=== PATIENT | male | born 1965 | race Caucasian/White ===

== ENCOUNTER 2023-03-07 15:55 | Inpatient (IN) | payer MEDICAID, OTHER, SELFPAY ==
[2023-03-07 16:04] VITALS: BP 140/70; PULSE 64; O2SAT 100
[2023-03-07 16:11] VITALS: BP 99/62; PULSE 98; RESP 18; O2SAT 96; BMI 19.3
--- NOTE | 2023-03-07 16:32 | ED_ITS ---
HPI - General Adult General Chief complaint: Psychiatric Symptoms Stated complaint: SI W/ PLAN. WHEELCHAIR BOUND Time Seen by Provider: 03/07/23 16:09 Source: patient and EMS Mode of arrival: EMS Limitations: no limitations History of Present Illness HPI narrative: 58-year-old male wheelchair-bound presents the emergency department with anxiety, depression suicidal ideation with plan to overdose and will himself into traffic. Patient currently coming from his [id number]-ofn's house, he reports being in and out of hotels and having relationship issues with his . He tells me is disabled. Denies visual, auditory and tactile hallucinations. Denies drugs alcohol tobacco. No medical complaints at this time. Related Data Home Medications Medication Instructions Recorded Confirmed folic acid 1 mg tablet 1 mg PO DAILY 03/08/23 03/08/23 hydroxyzine HCl 25 mg tablet 25 mg PO BEDTIME PRN anxiety 03/08/23 03/08/23 ipratropium 20 mcg-albuterol 100 1 puff inhalation BID PRN Wheezing 03/08/23 03/08/23 mcg/actuation mist for inhalation (Combivent Respimat) thiamine HCl (vitamin B1) 100 mg 100 mg PO DAILY 03/08/23 03/08/23 tablet tiotropium bromide 1.25 2 puff inhalation DAILY 03/08/23 03/08/23 mcg/actuation mist for inhalation (Spiriva Respimat) Allergies Allergy/AdvReac Type Severity Reaction Status Date / Time Unable to Assess Allergy Unverified 03/07/23 16:21 Review of Systems Review of Systems: Constitutional : No Weight loss, No Fever, No Chills, No Fatigue, No Malaise ENT/Mouth : No sore throat, No Rhinorrhea Eyes: No Eye Pain, No Swelling, No Redness Cardiovascular : No Chest Pain, No SOB, No Dyspnea on Exertion, No Orthopnea, No Edema, No Palpitations Respiratory : No Cough, No Sputum, No Wheezing Gastrointestinal : No Nausea, No Vomiting, No Diarrhea, No Constipation, No abdominal Pain, No Hematochezia, No Melena Genitourinary : No Dysuria, No Urinary Frequency, No Hematuria, Musculoskeletal : No joint pain, No Myalgias, No Joint Swelling Skin : No Skin Lesions, No rash Neuro : No Weakness, No Numbness, No Dizziness, No Headache Psych : + Anxiety/Panic, No Depression, +SI, No HI All other systems reviewed and are negative Yes all other systems are reviewed and are negative [facility] Past Medical History Attestation statement: The following information was validated with the patient. Source: old records reviewed and nursing notes reviewed Social History Social History Alcohol intake: current Alcohol intake frequency: 3 or more drinks per day Use of substances other than those prescribed or required for medical reasons: Yes Substance Use Type: Marijuana Advance Directives: No Advance Directives Information Provided: No Healthcare Proxy: No Guardian: No Physical Exam ED Vital Signs: Vital Signs - 24 hr 03/07/23 16:11 03/07/23 18:50 03/07/23 20:14 Temperature 98.8 F 98.9 F Pulse Rate 98 105 H 94 Respiratory Rate 18 12 12 Blood Pressure 99/62 89/63 L 96/57 L Pulse Oximetry 96 95 93 Oxygen Delivery Method Room Air Room Air 03/07/23 22:04 03/08/23 01:23 03/08/23 03:17 Temperature 99 F 99.7 F Pulse Rate 95 99 104 H Respiratory Rate 12 17 16 Blood Pressure 106/60 128/82 128/73 Pulse Oximetry 95 93 95 Oxygen Delivery Method Room Air Room Air Room Air 03/08/23 06:07 Temperature Pulse Rate Respiratory Rate 18 Blood Pressure Pulse Oximetry Oxygen Delivery Method BMI result Body Mass Index 19.3 vss Appearance: Alert.? Oriented X3.? No acute distress.? Head: Normocephalic, atraumatic, no step-offs or deformities Eyes: Pupils equal, round and reactive to light.? ENT: Pharynx normal.? Neck: Normal inspection.? Neck supple.? CVS: Normal heart rate and rhythm.? Pulses normal.? Respiratory: No respiratory distress.? Breath sounds normal.? Abdomen: Soft and nontender.? Skin: Skin warm and dry.? Normal skin color.? Normal skin turgor.? Extremities: No lower extremity edema.? No calf ttp. Global weakness Neuro: Oriented X 3.? No motor deficit.? No sensory deficit. CN 2-12 intact Course Course Course Narrative: 03/08/2023 1358: Patient awaiting behavioral health placement. No acute complaints. Physician observation continues. Reevaluation(s) Reevaluation #1: CBC with slight leukocytosis 13.6, I do not suspect acute infection. Likely patient's baseline or reactivity. Chemistry low potassium to who 0.9, oral potassium order, 40 meq. UA without infection. Urine toxicology positive for marijuana. Patient's ethanol elevated consistent with acute alcohol intoxication. Salicylates, acetaminophen negative. At this time patient be placed in observation to allow more time to be evaluated by care team. At time observation was started patient common cooperative no acute distress. Time: 17:06 Medications Administered Discontinued Medications Generic Name Dose Route Start Last Admin Trade Name Brandin PRN Reason Stop Dose Admin Acetaminophen 650 mg 03/07/23 16:39 03/07/23 16:53 Acetaminophen 325 Mg Tablet PO 03/07/23 16:40 650 mg ONCE ONE Administration Potassium Chloride 40 meq 03/07/23 17:01 03/07/23 18:53 Potassium Chloride Packet 20 Meq Packet PO 03/07/23 17:02 40 meq ONCE ONE Administration Medical Decision Making Medical Decision Making [facility] Narrative: 1610 58-year-old male presents with anxiety, depression suicidal ideation with plan to wheel himself into traffic on his wheelchair and overdose no medical complaints Physical exam benign. Global weakness noted this is patient's baseline. Likely major depression, anxiety. Unlikely metabolic derangements. Plan medical clearance evaluation by behavioral health team. Differential Diagnosis Differential Diagnoses: The differential diagnosis associated with the pr esentation includes Likely major depression, anxiety. Unlikely metabolic derangements. Admission/Observation Consideration of admission/observation: Escalation of care including admission/observation considered Lab Data [facility] Lab Attestation statement: I reviewed the patient's lab results. 03/07/23 16:24 03/07/23 16:25 Labs: Lab Results 03/07/23 03/07/23 03/07/23 Range/Units 16:24 16:24 16:24 WBC 13.6 H (4.8-10.8) X10*3/uL RBC 5.11 (4.60-5.80) X10*6/uL Hgb 17.3 (14.0-18.0) g/dl Hct 46.7 (42.0-52.0) % MCV 91.4 (80.0-98.0) fL MCH 33.9 H (27.0-33.0) pg MCHC 37.0 H (31.0-36.0) g/dl RDW 11.7 (11.0-16.0) % Plt Count 251 (160-400) X10*3/uL MPV 8.6 L (9.4-12.4) fL Immature Gran % (Auto) 0.4 (0.0-0.4) % Neut % (Auto) 63.9 (45-73) % Lymph % (Auto) 27.7 (20-40) % [place] % (Auto) 7.5 (2-11) % Eos % (Auto) 0.1 (0-4) % Baso % (Auto) 0.4 (0-2) % Lymph # (Auto) 3.8 (1.2-4.9) X10*3/uL [place] # (Auto) 1.0 (0.1-1.2) X10*3/uL Eos # (Auto) 0.0 (0.0-0.4) X10*3/uL Baso # (Auto) 0.1 (0.0-0.2) X10*3/uL Abs Immat Gran (auto) 0.05 H (0.00-0.03) X10*3/uL Absolute Neuts (auto) 8.7 H (2.0-8.3) x10*3/uL Absolute Nucleated RBC 0.000 (0.0-0.012) X10*3/uL Nucleated RBC % (auto) 0.0 (0.0-0.2) /100WBC Sodium (135-145) mmol/L Potassium (3.3-5.1) mmol/L Chloride (96-108) mmol/L Carbon Dioxide (22-29) mmol/L Anion Gap (12-20) BUN (9-16) mg/dL Creatinine (0.5-1.4) mg/dL Estim Creat Clear Calc Estimated GFR Random Glucose (60-115) mg/dL Calcium (8.4-10.2) mg/dL Total Bilirubin (0.0-1.0) mg/dL AST (5-37) U/L ALT (0-40) U/L Alkaline Phosphatase (39-117) U/L Total Creatine Kinase (38-174) U/L Total Protein (6.5-8.0) g/dL Albumin (3.5-5.0) g/dL Urine Color Dark Yellow Urine Appearance Clear Urine pH 6.0 (5.0-9.0) Ur Specific [place] 1.025 (1.005-1.025) Urine Protein 300 (3+) H (Neg-Trace) mg/dL Urine Glucose (UA) Negative (Negative) mg/dL Urine Ketones Negative (Negative) mg/dL Urine Blood Negative (Negative) Urine Nitrite Negative (Negative) Ur Leukocyte Esterase Trace H (Negative) Urine RBC 0-2 (0-2) /HPF Urine WBC 0-5 (0-5) /HPF Ur Squamous Epith Cells 0-2 (0-2) /HPF Urine Bacteria None Seen (None Seen) Hyaline Casts 11-20 (0-2) /LPF Salicylates < 5.0 L (15-30) mg/dL Urine Opiates Screen (Not Detect) Urine Fentanyl Screen (Not Detect) Acetaminophen < 17 (<30) mcg/mL Ur Barbiturates Screen (Not Detect) Ur Phencyclidine Scrn (Not Detect) Ur Amphetamines Screen (Not Detect) U Benzodiazepines Scrn (Not Detect) Urine Cocaine Screen (Not Detect) U Marijuana (THC) Screen (Not Detect) Ethyl Alcohol mg/dL COVID-19 (URI) (Negative) COVID-19 Clin Com 03/07/23 03/07/23 03/08/23 Range/Units 16:24 16:25 09:49 WBC (4.8-10.8) X10*3/uL RBC (4.60-5.80) X10*6/uL Hgb (14.0-18.0) g/dl Hct (42.0-52.0) % MCV (80.0-98.0) fL MCH (27.0-33.0) pg MCHC (31.0-36.0) g/dl RDW (11.0-16.0) % Plt Count (160-400) X10*3/uL MPV (9.4-12.4) fL Immature Gran % (Auto) (0.0-0.4) % Neut % (Auto) (45-73) % Lymph % (Auto) (20-40) % [place] % (Auto) (2-11) % Eos % (Auto) (0-4) % Baso % (Auto) (0-2) % Lymph # (Auto) (1.2-4.9) X10*3/uL [place] # (Auto) (0.1-1.2) X10*3/uL Eos # (Auto) (0.0-0.4) X10*3/uL Baso # (Auto) (0.0-0.2) X10*3/uL Abs Immat Gran (auto) (0.00-0.03) X10*3/uL Absolute Neuts (auto) (2.0-8.3) x10*3/uL Absolute Nucleated RBC (0.0-0.012) X10*3/uL Nucleated RBC % (auto) (0.0-0.2) /100WBC Sodium 139 (135-145) mmol/L Potassium 2.9 L (3.3-5.1) mmol/L Chloride 93 L (96-108) mmol/L Carbon Dioxide 30 H (22-29) mmol/L Anion Gap 19 (12-20) BUN 8 L (9-16) mg/dL Creatinine 0.81 (0.5-1.4) mg/dL Estim Creat Clear Calc 97.0 Estimated GFR > 60 Random Glucose 107 (60-115) mg/dL Calcium 9.4 (8.4-10.2) mg/dL Total Bilirubin 0.5 (0.0-1.0) mg/dL AST 22 (5-37) U/L ALT 16 (0-40) U/L Alkaline Phosphatase 183 H (39-117) U/L Total Creatine Kinase 110 (38-174) U/L Total Protein 7.9 (6.5-8.0) g/dL Albumin 4.2 (3.5-5.0) g/dL Urine Color Urine Appearance Urine pH (5.0-9.0) Ur Specific [place] (1.005-1.025) Urine Protein (Neg-Trace) mg/dL Urine Glucose (UA) (Negative) mg/dL Urine Ketones (Negative) mg/dL Urine Blood (Negative) Urine Nitrite (Negative) Ur Leukocyte Esterase (Negative) Urine RBC (0-2) /HPF Urine WBC (0-5) /HPF Ur Squamous Epith Cells (0-2) /HPF Urine Bacteria (None Seen) Hyaline Casts (0-2) /LPF Salicylates (15-30) mg/dL Urine Opiates Screen Not Detected (Not Detect) Urine Fentanyl Screen Not Detected (Not Detect) Acetaminophen (<30) mcg/mL Ur Barbiturates Screen Not Detected (Not Detect) Ur Phencyclidine Scrn Not Detected (Not Detect) Ur Amphetamines Screen Not Detected (Not Detect) U Benzodiazepines Scrn Not Detected (Not Detect) Urine Cocaine Screen Not Detected (Not Detect) U Marijuana (THC) Screen POSITIVE H (Not Detect) Ethyl Alcohol 236 mg/dL COVID-19 (URI) Negative (Negative) COVID-19 Clin Com See Note 03/08/23 Range/Units 12:15 WBC (4.8-10.8) X10*3/uL RBC (4.60-5.80) X10*6/uL Hgb (14.0-18.0) g/dl Hct (42.0-52.0) % MCV (80.0-98.0) fL MCH (27.0-33.0) pg MCHC (31.0-36.0) g/dl RDW (11.0-16.0) % Plt Count (160-400) X10*3/uL MPV (9.4-12.4) fL Immature Gran % (Auto) (0.0-0.4) % Neut % (Auto) (45-73) % Lymph % (Auto) (20-40) % [place] % (Auto) (2-11) % Eos % (Auto) (0-4) % Baso % (Auto) (0-2) % Lymph # (Auto) (1.2-4.9) X10*3/uL [place] # (Auto) (0.1-1.2) X10*3/uL Eos # (Auto) (0.0-0.4) X10*3/uL Baso # (Auto) (0.0-0.2) X10*3/uL Abs Immat Gran (auto) (0.00-0.03) X10*3/uL Absolute Neuts (auto) (2.0-8.3) x10*3/uL Absolute Nucleated RBC (0.0-0.012) X10*3/uL Nucleated RBC % (auto) (0.0-0.2) /100WBC Sodium 137 (135-145) mmol/L Potassium 3.3 (3.3-5.1) mmol/L Chloride 93 L (96-108) mmol/L Carbon Dioxide 35 H (22-29) mmol/L Anion Gap 12 (12-20) BUN 9 (9-16) mg/dL Creatinine 0.79 (0.5-1.4) mg/dL Estim Creat Clear Calc 99.5 Estimated GFR > 60 Random Glucose 110 (60-115) mg/dL Calcium 9.5 (8.4-10.2) mg/dL Total Bilirubin (0.0-1.0) mg/dL AST (5-37) U/L ALT (0-40) U/L Alkaline Phosphatase (39-117) U/L Total Creatine Kinase (38-174) U/L Total Protein (6.5-8.0) g/dL Albumin (3.5-5.0) g/dL Urine Color Urine Appearance Urine pH (5.0-9.0) Ur Specific [place] (1.005-1.025) Urine Protein (Neg-Trace) mg/dL Urine Glucose (UA) (Negative) mg/dL Urine Ketones (Negative) mg/dL Urine Blood (Negative) Urine Nitrite (Negative) Ur Leukocyte Esterase (Negative) Urine RBC (0-2) /HPF Urine WBC (0-5) /HPF Ur Squamous Epith Cells (0-2) /HPF Urine Bacteria (None Seen) Hyaline Casts (0-2) /LPF Salicylates (15-30) mg/dL Urine Opiates Screen (Not Detect) Urine Fentanyl Screen (Not Detect) Acetaminophen (<30) mcg/mL Ur Barbiturates Screen (Not Detect) Ur Phencyclidine Scrn (Not Detect) Ur Amphetamines Screen (Not Detect) U Benzodiazepines Scrn (Not Detect) Urine Cocaine Screen (Not Detect) U Marijuana (THC) Screen (Not Detect) Ethyl Alcohol mg/dL COVID-19 (URI) (Negative) COVID-19 Clin Com Core Measures AMI core measures followed: Yes Measure exclusions: not indicated Critical Care Time Critical Care Time Critical Care Time: No Discharge Plan Discharge Clinical Impression: Depression, Suicidal ideation, Acute alcohol intoxication Patient Disposition: Still a Patient Prescriptions: No Action thiamine HCl (vitamin B1) 100 mg tablet 100 mg PO DAILY folic acid 1 mg tablet 1 mg PO DAILY hydroxyzine HCl 25 mg tablet 25 mg PO BEDTIME PRN (Reason: anxiety) Combivent Respimat 20-100 mcg/actuation mist 1 puff inhalation BID PRN (Reason: Wheezing) Spiriva Respimat 1.25 mcg/actuation mist 2 puff INHALATION DAILY Interventions: [place]-Suicide Risk Severity Scale Last Done: 03/08/23 02:43
[2023-03-07 16:40] LABS: MANUAL DIFF FLAG NO
[2023-03-07 16:42] LABS: Basophils Absolute Auto 0.1 X10*3/uL (0.0-0.2); Basophils Percent Auto 0.4 % (0-2); Eosinophils Percent Auto 0.1 % (0-4); Hematocrit 46.7 % (42.0-52.0); Hemoglobin 17.3 g/dl (14.0-18.0); Imm Gran Abs Auto 0.05 X10*3/uL (0.00-0.03); Imm Gran Pct Auto 0.4 % (0.0-0.4); Lymphocytes Absolute Auto 3.8 X10*3/uL (1.2-4.9); Lymphocytes Percent Auto 27.7 % (20-40); Mean Corpuscular Hemoglobin 33.9 pg (27.0-33.0); Mean Corpuscular Volume 91.4 fL (80.0-98.0); Mean Platelet Volume 8.6 fL (9.4-12.4); Monocytes Percent Auto 7.5 % (2-11); Neutrophils Absolute Auto 8.7 x10*3/uL (2.0-8.3); Neutrophils Percent Auto 63.9 % (45-73); Platelet Count 251 X10*3/uL (160-400); Red Blood Count 5.11 X10*6/uL (4.60-5.80); Red Cell Distribution Width 11.7 % (11.0-16.0); White Blood Count 13.6 X10*3/uL (4.8-10.8)
[2023-03-07 16:43] LABS: Appearance Urine Clear; Color Urine Dark Yellow; Glucose Urine UA Negative (Negative); Leukocyte Esterase Urine Trace (Negative); Nitrite Urine Negative (Negative); Specific Gravity - Urine 1.025 (1.005-1.025); UMIC TRIGGER UACC YES; Urine Blood Negative (Negative); Urine Ketones Negative (Negative); Urine Protein 300 (3+) mg/dL (Neg-Trace)
[2023-03-07 16:52] LABS: Amphetamine Screen Urine Not Detected (Not Detect); Barbiturates, Urine Not Detected (Not Detect); Benzodiazepines Screen Urine Not Detected (Not Detect); Cannabinoid Screen Urine POSITIVE (Not Detect); Cocaine Screen Urine Not Detected (Not Detect); Fentanyl, urine Not Detected (Not Detect); Opiate Screen Urine Not Detected (Not Detect); Phencyclidine Screen Urine Not Detected (Not Detect)
[2023-03-07] MEDS: Acetaminophen 325 MG TABLET 650 MG PO (16:53)
[2023-03-07 16:54] LABS: Bacteria Urine None Seen (None Seen); RBC Urine 0-2 /HPF (0-2); Squamous Epithelial Cell Urine 0-2 /HPF (0-2); WBC Urine 0-5 /HPF (0-5)
[2023-03-07 16:57] LABS: Alanine Aminotransferase 16 U/L (0-40); Albumin Level 4.2 g/dL (3.5-5.0); Alkaline Phosphatase 183 U/L (39-117); Anion Gap 19 (12-20); Aspartate Amino Transferase 22 U/L (5-37); Bilirubin Total 0.5 mg/dL (0.0-1.0); Blood Urea Nitrogen 8 mg/dL (9-16); Calcium 9.4 mg/dL (8.4-10.2); Carbon Dioxide 30 mmol/L (22-29); Chloride 93 mmol/L (96-108); Estimated Glomerular Filt Rate > 60; Ethanol 236 mg/dL; Glucose Random 107 mg/dL (60-115); Potassium 2.9 mmol/L (3.3-5.1); Sodium 139 mmol/L (135-145); Total Protein 7.9 g/dL (6.5-8.0)
[2023-03-07 17:04] LABS: Acetaminophen LAB < 17 mcg/mL (<30); Salicylate < 5.0 mg/dL (15-30)
[2023-03-07 18:50] VITALS: BP 89/63; PULSE 105; RESP 12; TEMP 37.1; O2SAT 95
[2023-03-07] MEDS: Potassium Chloride Packet 20 MEQ PACKET 40 MEQ PO (18:53)
[2023-03-07 20:14] VITALS: BP 96/57; PULSE 94; RESP 12; TEMP 37.2; O2SAT 93
--- NOTE | 2023-03-07 20:17 | PC.NURSE ---
assumed care of pt at 1900 - pt resting comfortably on stretcher, respirations even and unlabored, 1:[address] call irene within reach will CTM
[2023-03-07 22:04] VITALS: BP 106/60; PULSE 95; RESP 12; TEMP 37.2; O2SAT 95
[2023-03-08 01:23] VITALS: BP 128/82; PULSE 99; RESP 17; O2SAT 93
[2023-03-08 03:17] VITALS: BP 128/73; PULSE 104; RESP 16; TEMP 37.6; O2SAT 95
[2023-03-08 06:00] VITALS: PULSE 95; RESP 18; TEMP 36.6; O2SAT 98
[2023-03-08 06:07] VITALS: RESP 18
--- NOTE | 2023-03-08 08:03 | PHA.MEDREC ---
Pharmacy Consult ? Medication Reconciliation Pharmacy has completed the medication reconciliation. Spoke to patient to confirm meds. Patient states they take all meds, however haven't filled inhalers since 07/06/22 and other meds since 10/15/22. Patient also states not taking their medication for at least 2 weeks.
--- NOTE | 2023-03-08 08:25 | PC.NURSE ---
pt reports depression but denies si at this time, pleasant, states he did not sleep well last night, drinking milk and plans to try to get some rest, sitter at bedside
--- NOTE | 2023-03-08 09:29 | ECG_ITS ---
Test Reason : check cardiac status for admission Blood Pressure : / mmHG Vent. Rate : 091 BPM Atrial Rate : 091 BPM P-R Int : 110 ms QRS Dur : 076 ms QT Int : 470 ms P-R-T Axes : 076 077 082 degrees QTc Int : 578 ms Sinus rhythm with short AR Right atrial enlargement ST depressions- consider ischemia Prolonged QTc Abnormal ECG No previous ECGs available Referred By: Andree Weiss Electronically Signed By:Satya Powell
[2023-03-08 10:08] LABS: COVID-19 Test Negative (Negative); IDNOW Serial# BCCEAD1C
[2023-03-08 12:34] LABS: Blood Urea Nitrogen 9 mg/dL (9-16); Calcium 9.5 mg/dL (8.4-10.2); Creatinine Clr Calc Pharmacy 99.5; Estimated Glomerular Filt Rate > 60; Glucose Random 110 mg/dL (60-115)
[2023-03-08 12:44] LABS: Anion Gap 12 (12-20); Carbon Dioxide 35 mmol/L (22-29); Chloride 93 mmol/L (96-108); Potassium 3.3 mmol/L (3.3-5.1); Sodium 137 mmol/L (135-145)
--- NOTE | 2023-03-08 15:45 | PC.NURSE ---
pt is asleep with spontaneous resps @ 16. pt esaily arousable pt calm and cooperative when awake, caox4 and interacting appropriately with staff. plan is for possible admission to .
[2023-03-08 15:47] VITALS: BP 91/62; PULSE 95; RESP 16; O2SAT 98
--- NOTE | 2023-03-08 18:03 | PC.NURSE ---
report has been given to m3, pt has been reevaluated by care team to determine if pt need abigail psych vs adult psych. plan is still for adult psych on m3
[2023-03-08 19:00] VITALS: BP 118/79; PULSE 98; RESP 18; TEMP 36.2; O2SAT 97
--- NOTE | 2023-03-08 19:01 | PC.NURSE ---
Patient brought to the floor from the ED for admission, patient skin check completed with this RN and NAINA Larkin no wounds or open areas identified on skin check. Patient reports 6/10 depression 0/10 anxiety denies current HI/SI. Patient changed in to hospital attire, VSS, height and weight taken. Patient is able to stand and pivot between wheelchair and bed with standby assist. Patient denies current physical complaints, respirations even and unlabored, pt caox4, pt verbalizes understanding of unit rules and human rights, Patient has 1:1 patient observer at the bedside.
[2023-03-08] MEDS: Gabapentin 300 MG CAPSULE PO (21:17)
[2023-03-08] MEDS: traZODone HCL 50 MG TABLET PO (21:18)
[2023-03-08] MEDS: Acetaminophen 325 MG TABLET 650 MG PO (21:18)
[2023-03-08] MEDS: LORazepam 1 MG TABLET PO (21:20)
[2023-03-08] MEDS: Albuterol Sulfate 90 MCG 8 GM INHALER 2 PUFF INHALE (22:07)
--- NOTE | 2023-03-09 05:56 | PC.ADMIT ---
Pt is a 58 yo male admitted to unit after referral from CARE team via ED. Arrived on unit at 1820. Legal status: CV. Pt's medical issues are leg and back injury which leaves him confined to a wheelchair. Hx of GERD, COPD and hypotension. Pt uses THC frequently and ETOH daily to excess. Precipitant to admission was that pt was homeless and his was staying at her father's house and pt is not allowed to stay there. Pt had been staying in [facility] for 30 days. Upon discharge pt had been staying at hotels but ran out of money. Pt then started self medicating his anxiety and depression with alcohol. According to pt's , pt has been suicidal for past 10 days. Pt had a plan to overdose and wheel his wheelchair into traffic to end his life. Pt also had a suicide attempt last year by starving himself for which he was hospitalized. Pt presents in hospital johnnies, disheveled, calm, tired, pleasant but wanting to sleep. Provider container crane operator notified of admission and orders obtained. Pt placed on 1:1 due to safety issue of wheelchair. Pt reports feeling safe in hospital.
[2023-03-09] MEDS: Folic Acid 1 MG TABLET PO (09:04)
[2023-03-09] MEDS: Gabapentin 300 MG CAPSULE PO ×3 (09:04→21:06)
[2023-03-09] MEDS: Thiamine HCL 100 MG TABLET PO (09:04)
[2023-03-09] MEDS: Albuterol Sulfate 90 MCG 8 GM INHALER 2 PUFF INHALE ×2 (09:08→21:09)
[2023-03-09] MEDS: Acetaminophen 325 MG TABLET 650 MG PO ×3 (09:08→21:03)
[2023-03-09 09:19] LABS: Estimated Average Glucose 105 mg/dL; Hemoglobin A1C 152.2017 umol/L; Hemoglobin A1c % 5.3 %
[2023-03-09 10:02] LABS: Cholesterol 201 mg/dL; HDL Cholesterol 50 mg/dL; LDL Cholesterol Calculated 114 mg/dl; Triglycerides 188 mg/dL
--- NOTE | 2023-03-09 10:26 | PC.NURSE ---
Pt is a smoker, refuses nicotine replacement therapy
[2023-03-09] MEDS: Sertraline HCL 50 MG TABLET PO (14:48)
--- NOTE | 2023-03-09 14:48 | HO.PSYADMNOT ---
HPI Date of Service: 03/09/23 Chief Complaint: depression/ si HPI Narrative: per CARE team evaluation, pt was BIBA with c/o depression with SI with plan to overdose and wheel his wheelchair into traffic. notably, at presentation to the ED, pt was intoxicated with breathalyzer at .236. he informed CARE team staff he had recently gotten out of [facility] after a 30 day stay and gone to stay with his and [id number] at his [id number]'s home, with the understanding he needed to remain sober in order to stay there. he failed to remain sober and was forced to leave. he then stayed at [facility] until his money ran out. then he became suicidal and sought admission. per collateral from kacie, pt has been expressing SI for the past 10 days. she added he was also suicidal last year and stopped eating but continuned drinking, resulting ultimately in a medical admission for failure to thrive and a referral to an alcohol rehab at discharge. pt reports he has been depressed for a couple of years. he states that he was OK until 2-3 years ago when he lost his house and became homeless. since that time he has been in and out of physical rehabilitation facilities and living in motels. he states he has had 4 and a half months of sobriety before, and feels confident he can quit drinking now, believing he is quite motivated. he reports consistently depressed mood and endorses sleep disturbance, ruminative guilt, anergia, low concentration, and recent SI. he is ambivlanet regarding motivation/enjoyment and PMA/PMR. he reports his appetite is good. today he feels he is in alcohol withdrawal and endorses sweats and diarrhea. he denies ALEXANDER, tremor, or nausea. he is interested in treatment for depression. R/B of SSRIs and wellbutrin are discussed, SSRI decided upon for safety. agrees to start zoloft 50 mg daily. pt also agrees to restart remeron, which he was prescribed recently at [facility]. Past Psychiatric History: hosps: none prior SA: denies SIB: denies outpt Tx Hx: denies Medical Evaluation Reviewed: Yes PMFSH Narrative: anemia COPD h/o EtOH w/drawal Sz severe protein-calorie malnutrition gait apraxia avascular necrosis B/L femoral heads functional urinary incontinence functional fecal incontinence GERD stage II pressure ulcer left hip Family History: mother - alcohol Social History: had been living in a rented house with his and 2 others. they left and he and his could no longer afford the rent. he was in and out of STRs and she went to live with her father. he has SSDI income of $900/month. has a history of working numerous jobs, such as factory work and electrical. guesses the last time he ws working was about 10 years ago. he states that for the past 3-4 years he has been disabled and in a wheelchair. Substance History: tobacco: 1 ppd cannabis: seldom: utox POS alcohol: daily denies use of other drugs or substances of abuse. denies any h/o detox or rehab. has some Hx in an AA-like group. Trauma History: denies Diagnostics Vital Signs (24Hr): Vital Signs - 24 hr 03/08/23 15:47 03/08/23 19:00 Temperature 97.2 F Pulse Rate 95 98 Respiratory Rate 16 18 Blood Pressure 91/62 118/79 Pulse Oximetry 98 97 Oxygen Delivery Method Room Air Room Air BMI result Body Mass Index 19.3 Labs 03/07/23 16:24 03/08/23 12:15 Labs: Laboratory Results - last 48 hr 03/07/23 03/07/23 03/07/23 16:24 16:24 16:24 WBC 13.6 H RBC 5.11 Hgb 17.3 Hct 46.7 MCV 91.4 MCH 33.9 H MCHC 37.0 H RDW 11.7 Plt Count 251 MPV 8.6 L Immature Gran % (Auto) 0.4 Neut % (Auto) 63.9 Lymph % (Auto) 27.7 Ellis % (Auto) 7.5 Eos % (Auto) 0.1 Baso % (Auto) 0.4 Lymph # (Auto) 3.8 Ellis # (Auto) 1.0 Eos # (Auto) 0.0 Baso # (Auto) 0.1 Abs Immat Gran (auto) 0.05 H Absolute Neuts (auto) 8.7 H Absolute Nucleated RBC 0.000 Nucleated RBC % (auto) 0.0 Sodium Potassium Chloride Carbon Dioxide Anion Gap BUN Creatinine Estim Creat Clear Calc Estimated GFR Random Glucose Estimat Average Glucose Hemoglobin A1c % Calcium Total Bilirubin AST ALT Alkaline Phosphatase Total Creatine Kinase Total Protein Albumin Triglycerides Cholesterol LDL Cholesterol, Calc HDL Cholesterol Urine Color Dark Yellow Urine Appearance Clear Urine pH 6.0 Ur Specific [place] 1.025 Urine Protein 300 (3+) H Urine Glucose (UA) Negative Urine Ketones Negative Urine Blood Negative Urine Nitrite Negative Ur Leukocyte Esterase Trace H Urine RBC 0-2 Urine WBC 0-5 Ur Squamous Epith Cells 0-2 Urine Bacteria None Seen Hyaline Casts 11-20 Salicylates < 5.0 L Urine Opiates Screen Urine Fentanyl Screen Acetaminophen < 17 Ur Barbiturates Screen Ur Phencyclidine Scrn Ur Amphetamines Screen U Benzodiazepines Scrn Urine Cocaine Screen U Marijuana (THC) Screen Ethyl Alcohol COVID-19 (URI) COVID-19 Ph.Creative Com 03/07/23 03/07/23 03/08/23 16:24 16:25 09:49 WBC RBC Hgb Hct MCV MCH MCHC RDW Plt Count MPV Immature Gran % (Auto) Neut % (Auto) Lymph % (Auto) Ellis % (Auto) Eos % (Auto) Baso % (Auto) Lymph # (Auto) Ellis # (Auto) Eos # (Auto) Baso # (Auto) Abs Immat Gran (auto) Absolute Neuts (auto) Absolute Nucleated RBC Nucleated RBC % (auto) Sodium 139 Potassium 2.9 L Chloride 93 L Carbon Dioxide 30 H Anion Gap 19 BUN 8 L Creatinine 0.81 Estim Creat Clear Calc 97.0 Estimated GFR > 60 Random Glucose 107 Estimat Average Glucose Hemoglobin A1c % Calcium 9.4 Total Bilirubin 0.5 AST 22 ALT 16 Alkaline Phosphatase 183 H Total Creatine Kinase 110 Total Protein 7.9 Albumin 4.2 Triglycerides Cholesterol LDL Cholesterol, Calc HDL Cholesterol Urine Color Urine Appearance Urine pH Ur Specific [place] Urine Protein Urine Glucose (UA) Urine Ketones Urine Blood Urine Nitrite Ur Leukocyte Esterase Urine RBC Urine WBC Ur Squamous Epith Cells Urine Bacteria Hyaline Casts Salicylates Urine Opiates Screen Not Detected Urine Fentanyl Screen Not Detected Acetaminophen Ur Barbiturates Screen Not Detected Ur Phencyclidine Scrn Not Detected Ur Amphetamines Screen Not Detected U Benzodiazepines Scrn Not Detected Urine Cocaine Screen Not Detected U Marijuana (THC) Screen POSITIVE H Ethyl Alcohol 236 COVID-19 (URI) Negative COVID-19 Ph.Creative Com See Note 03/08/23 03/09/23 03/09/23 12:15 08:57 08:58 WBC RBC Hgb Hct MCV MCH MCHC RDW Plt Count MPV Immature Gran % (Auto) Neut % (Auto) Lymph % (Auto) Ellis % (Auto) Eos % (Auto) Baso % (Auto) Lymph # (Auto) Ellis # (Auto) Eos # (Auto) Baso # (Auto) Abs Immat Gran (auto) Absolute Neuts (auto) Absolute Nucleated RBC Nucleated RBC % (auto) Sodium 137 Potassium 3.3 Chloride 93 L Carbon Dioxide 35 H Anion Gap 12 BUN 9 Creatinine 0.79 Estim Creat Clear Calc 99.5 Estimated GFR > 60 Random Glucose 110 Estimat Average Glucose 105 Hemoglobin A1c % 5.3 Calcium 9.5 Total Bilirubin AST ALT Alkaline Phosphatase Total Creatine Kinase Total Protein Albumin Triglycerides 188 Cholesterol 201 LDL Cholesterol, Calc 114 HDL Cholesterol 50 Urine Color Urine Appearance Urine pH Ur Specific [place] Urine Protein Urine Glucose (UA) Urine Ketones Urine Blood Urine Nitrite Ur Leukocyte Esterase Urine RBC Urine WBC Ur Squamous Epith Cells Urine Bacteria Hyaline Casts Salicylates Urine Opiates Screen Urine Fentanyl Screen Acetaminophen Ur Barbiturates Screen Ur Phencyclidine Scrn Ur Amphetamines Screen U Benzodiazepines Scrn Urine Cocaine Screen U Marijuana (THC) Screen Ethyl Alcohol COVID-19 (URI) COVID-19 Clin Com Meds/Allergies Meds Home Medications Medication Instructions Recorded Confirmed Type folic acid 1 mg tablet 1 mg PO DAILY 03/08/23 03/08/23 History hydroxyzine HCl 25 mg tablet 25 mg PO BEDTIME PRN anxiety 03/08/23 03/08/23 History ipratropium 20 mcg-albuterol 100 1 puff inhalation BID PRN Wheezing 03/08/23 03/08/23 History mcg/actuation mist for inhalation (Combivent Respimat) thiamine HCl (vitamin B1) 100 mg 100 mg PO DAILY 03/08/23 03/08/23 History tablet tiotropium bromide 1.25 2 puff inhalation DAILY 03/08/23 03/08/23 History mcg/actuation mist for inhalation (Spiriva Respimat) Allergies Allergies Allergy/AdvReac Type Severity Reaction Status Date / Time No Known Allergies Allergy Verified 03/08/23 19:11 Mental Status Exam Mental Status Exam Narrative: calm, cooperative. no PMA/PMR. disheveled, poorly groomed. speech somewhat dysarthric, soft. nml amount and rate and prosody. thoughts digressive, can be linear in response to questions. generally logical. affect constricted, normo-intense, non-labile. mood half n half. no SI, MRE day of presentation to ED. denies AVH, TH. Assessment & Plan Assessment & Plan (1) Nicotine use disorder: Status: Acute Code(s): F17.200 - Nicotine dependence, unspecified, uncomplicated (2) Alcohol use disorder: Status: Acute Code(s): F10.90 - Alcohol use, unspecified, uncomplicated (3) Depressive disorder: Status: Acute Code(s): F32.A - Depression, unspecified Plan ativan per [facility] protocol for alcohol withdrawal. lacie lozenge for nicotine dependence. remeron for sleep. zoloft for depression. referral to rehab. Patient educated on: diagnosis, medication risk/benefits and substance abuse Reason for continued inpatient stay Substantial Risk for: harm to self, inability to function and rapid decompensation Statement Statement: I have reviewed the history and physical and performed a pertinent examination on my patient. No changes have occurred unless specified. If the History and Physical was not performed prior to admission, the Hospitalist's service will be consulted for completing the admission physical. Time Spent With Patient Time: Total time managing care of this patient today __55__ minutes.
[2023-03-09] MEDS: Magnesium Hydrox/Alum Hydrox 30 ML ORAL.SUSP PO (18:50)
[2023-03-09 20:16] VITALS: BP 129/87; PULSE 98; RESP 18; TEMP 36.6; O2SAT 97
[2023-03-09] MEDS: Mirtazapine 15 MG TABLET PO (21:05)
[2023-03-09] MEDS: hydrOXYzine HCL 25 MG TABLET PO (21:06)
--- NOTE | 2023-03-10 03:42 | PC.NURSE ---
Provider public relations supervisor contacted to clarify bedtime mirtazepine orders. Provider advised no changes to orders at this time, administer 15 mg mirtazepine, and if needed pt may receive 7.5 mg as prn. Orders to be reviewed again with provider in the morning.
[2023-03-10 08:46] VITALS: BP 115/68; PULSE 88; RESP 16; TEMP 36.6; O2SAT 97
[2023-03-10] MEDS: Thiamine HCL 100 MG TABLET PO (08:48)
[2023-03-10] MEDS: Gabapentin 300 MG CAPSULE PO ×3 (08:48→21:33)
[2023-03-10] MEDS: Sertraline HCL 50 MG TABLET PO (08:48)
[2023-03-10] MEDS: Folic Acid 1 MG TABLET PO (08:48)
[2023-03-10] MEDS: Acetaminophen 325 MG TABLET 650 MG PO ×2 (09:30→21:34)
--- NOTE | 2023-03-10 13:45 | P.PNPSI_ITS ---
Subjective Subjective Date of Service: 03/10/23 Reason For Visit: depression/ si Interim History: Patient seen and discussed with team. Patient reports he is feeling better overall as he is sleeping better with his current medications.Tolerating Remeron and Zoloft well. He is having some nausea but able to eat and drink. Continues on 1:1 for fall risk. He denies SI or AVH. No withdrawals noted. CIWA negative. Review of Systems Review of Systems Constitutional : No Weight loss, No Fever, No Chills, No Fatigue, No Malaise ENT/Mouth : No sore throat, No Rhinorrhea Eyes: No Eye Pain, No Swelling, No Redness Cardiovascular : No Chest Pain, No SOB, No Dyspnea on Exertion, No Orthopnea, No Edema, No Palpitations Respiratory : No Cough, No Sputum, No Wheezing Gastrointestinal : No Nausea, No Vomiting, No Diarrhea, No Constipation, No abdominal Pain, No Hematochezia, No Melena Genitourinary : No Dysuria, No Urinary Frequency, No Hematuria, Musculoskeletal : No joint pain, No Myalgias, No Joint Swelling Skin : No Skin Lesions, No rash Neuro : No Weakness, No Numbness, No Dizziness, No Headache Psych : + Anxiety/Panic, No Depression, +SI, No HI All other systems reviewed and are negative Yes all other systems are reviewed and are negative Mental Status Exam Mental Status Exam Narrative: calm, cooperative. no PMA/PMR. disheveled, poorly groomed. speech somewhat dysarthric, soft. nml amount and rate and prosody. thoughts digressive, can be linear in response to questions. generally logical. affect constricted, normo- intense, non-labile. mood half n half. no SI, MRE day of presentation to ED. denies AVH, TH. Diagnostics Vital Signs (24Hr): Vital Signs - 24 hr 03/09/23 20:16 03/10/23 08:46 Temperature 97.8 F 97.9 F Pulse Rate 98 88 Respiratory Rate 18 16 Blood Pressure 129/87 115/68 Pulse Oximetry 97 97 Oxygen Delivery Method Room Air Room Air BMI result Body Mass Index 19.3 Labs 03/07/23 16:24 03/08/23 12:15 Labs: Laboratory Results - last 48 hr 03/09/23 03/09/23 08:57 08:58 Estimat Average Glucose 105 Hemoglobin A1c % 5.3 Triglycerides 188 Cholesterol 201 LDL Cholesterol, Calc 114 HDL Cholesterol 50 Medications Medications Current Medications Acetaminophen (Acetaminophen 325 Mg Tablet) 650 mg PO Q6H PRN PRN Reason: Headache/Pain Mild Scale (1-3) Last Admin: 03/10/23 09:30 Dose: 650 mg Al Hydroxide/Mg Hydroxide (Magnesium Hydrox/Alum Hydrox 30 Ml Oral.Susp) 30 ml PO Q6H PRN PRN Reason: Heartburn/Nausea Last Admin: 03/09/23 18:50 Dose: 30 ml Albuterol Sulfate (Albuterol Sulfate 90 Mcg 8 Gm Inhaler) 2 puff INHALE RQ4H PRN PRN Reason: Shortness of Breath Last Admin: 03/09/23 21:09 Dose: 2 puff Albuterol/Ipratropium (Albuterol/Iprat 2.5/0.5mg 3 Ml Ampul.Neb) 3 ml INHALE BID PRN PRN Reason: Wheezing Folic Acid (Folic Acid 1 Mg Tablet) 1 mg PO DAILY [facility] Last Admin: 03/10/23 08:48 Dose: 1 mg Gabapentin (Gabapentin 300 Mg Capsule) 300 mg PO TID [facility] Last Admin: 03/10/23 08:48 Dose: 300 mg Hydroxyzine HCl (Hydroxyzine Hcl 25 Mg Tablet) 25 mg PO Q6H PRN PRN Reason: Anxiety Last Admin: 03/09/23 21:06 Dose: 25 mg Lorazepam (Lorazepam 1 Mg Tablet) 1 mg PO Q2H PRN PRN Reason: CIWA 6-10 Last Admin: 03/08/23 21:20 Dose: 1 mg Lorazepam (Lorazepam 1 Mg Tablet) 2 mg PO Q2H PRN PRN Reason: CIWA 11 and above Magnesium Hydroxide (Milk Of Magnesia 30 Ml Oral.Susp) 30 ml PO DAILY PRN PRN Reason: Constipation Mirtazapine (Mirtazapine 15 Mg Tablet) 15 mg PO BEDTIME [facility] Last Admin: 03/09/23 21:05 Dose: 15 mg Mirtazapine (Mirtazapine 7.5 Mg Tablet) 7.5 mg PO BEDTIME MRX1 [facility] Last Admin: 03/09/23 23:30 Dose: Not Given Nicotine (Nicotine 21 Mg Patch.Td24) 21 mg TRANSDERMA DAILY PRN PRN Reason: smoking cessation Nicotine Polacrilex (Nicotine Polacrilex Lozenge 4 Mg Lozenge) 4 mg BUCCAL Q2H PRN PRN Reason: Nicotine Cravings Sertraline HCl (Sertraline Hcl 50 Mg Tablet) 50 mg PO DAILY [facility] Last Admin: 03/10/23 08:48 Dose: 50 mg Thiamine HCl (Thiamine Hcl 100 Mg Tablet) 100 mg PO DAILY [facility] Last Admin: 03/10/23 08:48 Dose: 100 mg Tiotropium Taver[place] (Tiotropium [place]avernier 2.5 Mcg Inhaler) 1 puff INHALE RDAILY [facility] Last Admin: 03/10/23 09:14 Dose: Not Given Allergies Allergies Allergy/AdvReac Type Severity Reaction Status Date / Time No Known Allergies Allergy Verified 03/08/23 19:11 Assessment & Plan Assessment & Plan (1) Nicotine use disorder: Status: Acute Code(s): F17.200 - Nicotine dependence, unspecified, uncomplicated (2) Alcohol use disorder: Status: Acute Code(s): F10.90 - Alcohol use, unspecified, uncomplicated (3) Depressive disorder: Status: Acute Code(s): F32.A - Depression, unspecified Plan ativan per [place] protocol for alcohol withdrawal. lacie lozenge for nicotine dependence. remeron for sleep. zoloft for depression. referral to rehab. 03/10: Josefa current regimen. Reason for continued inpatient stay Substantial Risk for: harm to self and rapid decompensation Time Spent With Patient Time: Total time managing care of this patient today ____ minutes.
[2023-03-10] MEDS: Albuterol Sulfate 90 MCG 8 GM INHALER 2 PUFF INHALE ×2 (14:50→21:36)
[2023-03-10 20:30] VITALS: BP 110/63; PULSE 90; RESP 18; TEMP 36.4; O2SAT 94
[2023-03-10] MEDS: Magnesium Hydrox/Alum Hydrox 30 ML ORAL.SUSP PO (20:33)
[2023-03-10] MEDS: Mirtazapine 15 MG TABLET PO (21:33)
[2023-03-10] MEDS: hydrOXYzine HCL 25 MG TABLET PO (21:34)
--- NOTE | 2023-03-11 04:58 | PC.NURSE ---
Order for mirtazepine 7.5 mg HS MRX1 to be given as prn per provider. Pt administered scheduled dose of 15 mg, did not utilize mirtazepine 7.5 mg order.
[2023-03-11 08:30] VITALS: BP 127/86; PULSE 93; RESP 18; TEMP 37.7; O2SAT 95
[2023-03-11] MEDS: Gabapentin 300 MG CAPSULE PO ×3 (08:37→21:31)
[2023-03-11] MEDS: Folic Acid 1 MG TABLET PO (08:37)
[2023-03-11] MEDS: Thiamine HCL 100 MG TABLET PO (08:37)
[2023-03-11] MEDS: Sertraline HCL 50 MG TABLET PO (08:37)
[2023-03-11] MEDS: Albuterol/Iprat 2.5/0.5MG 3 ML AMPUL.NEB INHALE (09:34)
[2023-03-11 09:35] VITALS: PULSE 122; RESP 16; O2SAT 99
[2023-03-11] MEDS: Acetaminophen 325 MG TABLET 650 MG PO ×2 (14:41→21:30)
--- NOTE | 2023-03-11 15:43 | HO.PSYCHPN ---
Subjective Subjective Date of Service: 03/11/23 Reason For Visit: depression/ si Interim History: Patient seen and discussed with team. Patient reports he is feeling better overall as he is sleeping better with his current medications.Tolerating Remeron and Zoloft well. Continues on 1:1 for fall risk. He denies SI or AVH. No withdrawals noted. Review of Systems Review of Systems Constitutional : No Weight loss, No Fever, No Chills, No Fatigue, No Malaise ENT/Mouth : No sore throat, No Rhinorrhea Eyes: No Eye Pain, No Swelling, No Redness Cardiovascular : No Chest Pain, No SOB, No Dyspnea on Exertion, No Orthopnea, No Edema, No Palpitations Respiratory : No Cough, No Sputum, No Wheezing Gastrointestinal : No Nausea, No Vomiting, No Diarrhea, No Constipation, No abdominal Pain, No Hematochezia, No Melena Genitourinary : No Dysuria, No Urinary Frequency, No Hematuria, Musculoskeletal : No joint pain, No Myalgias, No Joint Swelling Skin : No Skin Lesions, No rash Neuro : No Weakness, No Numbness, No Dizziness, No Headache Psych : + Anxiety/Panic, No Depression, +SI, No HI All other systems reviewed and are negative Yes all other systems are reviewed and are negative Mental Status Exam Mental Status Exam Narrative: calm, cooperative. no PMA/PMR. disheveled, poorly groomed. speech somewhat dysarthric, soft. nml amount and rate and prosody. thoughts digressive, can be linear in response to questions. generally logical. affect constricted, normo-intense, non-labile. mood half n half. no SI, MRE day of presentation to ED. denies AVH, TH. Diagnostics Vital Signs (24Hr): Vital Signs - 24 hr 03/10/23 20:30 03/11/23 08:30 03/11/23 09:35 Temperature 97.6 F 99.9 F Pulse Rate 90 93 122 H Respiratory Rate 18 18 16 Blood Pressure 110/63 127/86 Pulse Oximetry 94 95 Oxygen Delivery Method Room Air Room Air BMI result Body Mass Index 19.3 Labs 03/07/23 16:24 03/08/23 12:15 Medications Medications Current Medications Acetaminophen (Acetaminophen 325 Mg Tablet) 650 mg PO Q6H PRN PRN Reason: Headache/Pain Mild Scale (1-3) Last Admin: 03/11/23 14:41 Dose: 650 mg Al Hydroxide/Mg Hydroxide (Magnesium Hydrox/Alum Hydrox 30 Ml Oral.Susp) 30 ml PO Q6H PRN PRN Reason: Heartburn/Nausea Last Admin: 03/10/23 20:33 Dose: 30 ml Albuterol Sulfate (Albuterol Sulfate 90 Mcg 8 Gm Inhaler) 2 puff INHALE RQ4H PRN PRN Reason: Shortness of Breath Last Admin: 03/10/23 21:36 Dose: 2 puff Albuterol/Ipratropium (Albuterol/Iprat 2.5/0.5mg 3 Ml Ampul.Neb) 3 ml INHALE BID PRN PRN Reason: Wheezing Last Admin: 03/11/23 09:34 Dose: 3 ml Folic Acid (Folic Acid 1 Mg Tablet) 1 mg PO DAILY [facility] Last Admin: 03/11/23 08:37 Dose: 1 mg Gabapentin (Gabapentin 300 Mg Capsule) 300 mg PO TID [facility] Last Admin: 03/11/23 14:38 Dose: 300 mg Hydroxyzine HCl (Hydroxyzine Hcl 25 Mg Tablet) 25 mg PO Q6H PRN PRN Reason: Anxiety Last Admin: 03/10/23 21:34 Dose: 25 mg Lorazepam (Lorazepam 1 Mg Tablet) 1 mg PO Q2H PRN PRN Reason: CIWA 6-10 Last Admin: 03/08/23 21:20 Dose: 1 mg Lorazepam (Lorazepam 1 Mg Tablet) 2 mg PO Q2H PRN PRN Reason: CIWA 11 and above Magnesium Hydroxide (Milk Of Magnesia 30 Ml Oral.Susp) 30 ml PO DAILY PRN PRN Reason: Constipation Mirtazapine (Mirtazapine 15 Mg Tablet) 15 mg PO BEDTIME [facility] Last Admin: 03/10/23 21:33 Dose: 15 mg Mirtazapine (Mirtazapine 7.5 Mg Tablet) 7.5 mg PO BEDTIME MRX1 [facility] Last Admin: 03/11/23 01:00 Dose: Not Given Nicotine (Nicotine 21 Mg Patch.Td24) 21 mg TRANSDERMA DAILY PRN PRN Reason: smoking cessation Nicotine Polacrilex (Nicotine Polacrilex Lozenge 4 Mg Lozenge) 4 mg BUCCAL Q2H PRN PRN Reason: Nicotine Cravings Sertraline HCl (Sertraline Hcl 50 Mg Tablet) 50 mg PO DAILY [facility] Last Admin: 03/11/23 08:37 Dose: 50 mg Thiamine HCl (Thiamine Hcl 100 Mg Tablet) 100 mg PO DAILY [facility] Last Admin: 03/11/23 08:37 Dose: 100 mg Tiotropium [place] (Tiotropium [place] 2.5 Mcg Inhaler) 1 puff INHALE RDAILY [facility] Last Admin: 03/11/23 08:36 Dose: 1 puff Allergies Allergies Allergy/AdvReac Type Severity Reaction Status Date / Time No Known Allergies Allergy Verified 03/08/23 19:11 Assessment & Plan Assessment & Plan (1) Nicotine use disorder: Status: Acute Code(s): F17.200 - Nicotine dependence, unspecified, uncomplicated (2) Alcohol use disorder: Status: Acute Code(s): F10.90 - Alcohol use, unspecified, uncomplicated (3) Depressive disorder: Status: Acute Code(s): F32.A - Depression, unspecified Plan [facility]'gen[facility]. lacie lozenge for nicotine dependence. remeron for sleep. zoloft for depression. referral to rehab. 03/10: Continue current regimen. 03/11: Continue current regimen. Reason for continued inpatient stay Substantial Risk for: inability to function and rapid decompensation Time Spent With Patient Time: Total time managing care of this patient today ____ minutes.
[2023-03-11 21:24] VITALS: BP 126/76; PULSE 96; TEMP 37.1; O2SAT 98
[2023-03-11] MEDS: Mirtazapine 15 MG TABLET PO (21:31)
[2023-03-11] MEDS: Mirtazapine 7.5 MG TABLET PO (21:31)
[2023-03-11] MEDS: Albuterol Sulfate 90 MCG 8 GM INHALER 2 PUFF INHALE (21:35)
[2023-03-12] MEDS: Sertraline HCL 50 MG TABLET PO (08:36)
[2023-03-12] MEDS: Gabapentin 300 MG CAPSULE PO ×3 (08:36→21:23)
[2023-03-12] MEDS: Folic Acid 1 MG TABLET PO (08:36)
[2023-03-12] MEDS: Thiamine HCL 100 MG TABLET PO (08:36)
[2023-03-12] MEDS: Acetaminophen 325 MG TABLET 650 MG PO ×3 (08:54→21:22)
[2023-03-12 09:14] VITALS: BP 101/60; PULSE 87; RESP 18; TEMP 36.9; O2SAT 94
--- NOTE | 2023-03-12 14:24 | MHC.CLN ---
NUTRITION CONSULT FOR MALNUTRITION. PATIENT CURRENTLY EATING WELL. ATE 100% THIS LUNCH. WOULD LIKE ENSURE TID. PROVIDES ADDITIONAL 1050 KCALS, 60 G PROTEIN. RECENTLY LIVING IN [place]/HOMELESS. NO REPORTED CONCERNS WITH APPETITE OR INTAKE. CONTINUE REGULAR DIET WITH ENSURE TID.
--- NOTE | 2023-03-12 14:32 | P.PNPSI_ITS ---
Subjective Subjective Date of Service: 03/12/23 Reason For Visit: depression/ si Interim History: calm, cooperative. states in one breath he is feeling jolly because everyone here is nice and the food is fantastic, then in the next insists he is very depressed. says he is trying to think positive. appears more jolly than depressed. notes he was just seen by PT. per SW, looking into rest homes. per staff, dep 10, anx 0. denies SI/HI/AVH. pleasant. watched some TV yesterday. eating better. Mental Status Exam Mental Status Exam Narrative: calm, cooperative. no PMA/PMR. disheveled, groomed. speech somewhat dysarthric, soft. nml amount and rate and prosody. thoughts digressive, can be linear in response to questions. logical. affect flexible, normo-intense, non- labile. mood jolly and also very depressed. no SI. no HI/AVH expressed. Diagnostics Vital Signs (24Hr): Vital Signs - 24 hr 03/11/23 21:24 03/12/23 09:14 Temperature 98.7 F 98.5 F Pulse Rate 96 87 Respiratory Rate 18 Blood Pressure 126/76 101/60 Pulse Oximetry 98 94 Oxygen Delivery Method Room Air Room Air BMI result Body Mass Index 19.3 Labs 03/07/23 16:24 03/08/23 12:15 Medications Medications Current Medications Acetaminophen (Acetaminophen 325 Mg Tablet) 650 mg PO Q6H PRN PRN Reason: Headache/Pain Mild Scale (1-3) Last Admin: 03/12/23 14:26 Dose: 650 mg Al Hydroxide/Mg Hydroxide (Magnesium Hydrox/Alum Hydrox 30 Ml Oral.Susp) 30 ml PO Q6H PRN PRN Reason: Heartburn/Nausea Last Admin: 03/10/23 20:33 Dose: 30 ml Albuterol Sulfate (Albuterol Sulfate 90 Mcg 8 Gm Inhaler) 2 puff INHALE RQ4H PRN PRN Reason: Shortness of Breath Last Admin: 03/11/23 21:35 Dose: 2 puff Albuterol/Ipratropium (Albuterol/Iprat 2.5/0.5mg 3 Ml Ampul.Neb) 3 ml INHALE BID PRN PRN Reason: Wheezing Last Admin: 03/11/23 09:34 Dose: 3 ml Folic Acid (Folic Acid 1 Mg Tablet) 1 mg PO DAILY [facility] Last Admin: 03/12/23 08:36 Dose: 1 mg Gabapentin (Gabapentin 300 Mg Capsule) 300 mg PO TID [facility] Last Admin: 03/12/23 14:26 Dose: 300 mg Hydroxyzine HCl (Hydroxyzine Hcl 25 Mg Tablet) 25 mg PO Q6H PRN PRN Reason: Anxiety Last Admin: 03/10/23 21:34 Dose: 25 mg Lorazepam (Lorazepam 1 Mg Tablet) 1 mg PO Q2H PRN PRN Reason: CIWA 6-10 Last Admin: 03/08/23 21:20 Dose: 1 mg Lorazepam (Lorazepam 1 Mg Tablet) 2 mg PO Q2H PRN PRN Reason: CIWA 11 and above Magnesium Hydroxide (Milk Of Magnesia 30 Ml Oral.Susp) 30 ml PO DAILY PRN PRN Reason: Constipation Mirtazapine (Mirtazapine 30 Mg Tablet) 30 mg PO BEDTIME [facility] Nicotine (Nicotine 21 Mg Patch.Td24) 21 mg TRANSDERMA DAILY PRN PRN Reason: smoking cessation Nicotine Polacrilex (Nicotine Polacrilex Lozenge 4 Mg Lozenge) 4 mg BUCCAL Q2H PRN PRN Reason: Nicotine Cravings Sertraline HCl (Sertraline Hcl 50 Mg Tablet) 50 mg PO DAILY [facility] Last Admin: 03/12/23 08:36 Dose: 50 mg Thiamine HCl (Thiamine Hcl 100 Mg Tablet) 100 mg PO DAILY [facility] Last Admin: 03/12/23 08:36 Dose: 100 mg Tiotropium [place] (Tiotropium [place] 2.5 Mcg Inhaler) 1 puff INHALE RDAILY [facility] Last Admin: 03/12/23 08:36 Dose: 1 puff Allergies Allergies Allergy/AdvReac Type Severity Reaction Status Date / Time No Known Allergies Allergy Verified 03/08/23 19:11 Assessment & Plan Assessment & Plan (1) Nicotine use disorder: Status: Acute Code(s): F17.200 - Nicotine dependence, unspecified, uncomplicated (2) Alcohol use disorder: Status: Acute Code(s): F10.90 - Alcohol use, unspecified, uncomplicated (3) Depressive disorder: Status: Acute Code(s): F32.A - Depression, unspecified Plan 03/09: ativan per [facility] protocol for alcohol withdrawal.? lacie lozenge for nicotine dependence.? remeron for sleep.? zoloft for depression. referral to rehab. 03/10: Continue current regimen. 03/11: WILLIAMS Brown as pt was not scoring. otherwise continue current regimen. 03/12: appears more lively. states both jolly and depressed. considering rest home. PT eval for gait/need for STR. dietary consult for malnutrition. increase remeron to 30 for insomnia. Reason for continued inpatient stay Substantial Risk for: inability to function and rapid decompensation Time Spent With Patient Time: Total time managing care of this patient today _25___ minutes.
[2023-03-12] MEDS: hydrOXYzine HCL 25 MG TABLET PO ×2 (15:37→21:23)
[2023-03-12 19:45] VITALS: BP 100/64; PULSE 87; RESP 16; TEMP 36.6; O2SAT 95
[2023-03-12] MEDS: Albuterol Sulfate 90 MCG 8 GM INHALER 2 PUFF INHALE (21:16)
[2023-03-12] MEDS: Mirtazapine 30 MG TABLET PO (21:23)
[2023-03-13] MEDS: Thiamine HCL 100 MG TABLET PO (08:38)
[2023-03-13] MEDS: Acetaminophen 325 MG TABLET 650 MG PO ×3 (08:38→22:03)
[2023-03-13] MEDS: Sertraline HCL 50 MG TABLET PO (08:38)
[2023-03-13] MEDS: Folic Acid 1 MG TABLET PO (08:38)
[2023-03-13] MEDS: Gabapentin 300 MG CAPSULE PO ×3 (08:39→22:04)
[2023-03-13 08:57] VITALS: BP 106/69; PULSE 96; RESP 20; TEMP 36.6; O2SAT 95
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
[2023-03-13 19:45] VITALS: BP 95/60; PULSE 90; RESP 16; TEMP 37; O2SAT 97
[2023-03-13] MEDS: hydrOXYzine HCL 25 MG TABLET PO (22:03)
[2023-03-13] MEDS: Mirtazapine 30 MG TABLET PO (22:03)
[2023-03-14 06:00] VITALS: BP 94/58; PULSE 88; RESP 16; TEMP 36.3; O2SAT 98
[2023-03-14] MEDS: Sertraline HCL 50 MG TABLET PO (09:01)
[2023-03-14] MEDS: Thiamine HCL 100 MG TABLET PO (09:01)
[2023-03-14] MEDS: Gabapentin 300 MG CAPSULE PO ×3 (09:01→22:14)
[2023-03-14] MEDS: Acetaminophen 325 MG TABLET 650 MG PO ×3 (09:01→22:14)
[2023-03-14] MEDS: Folic Acid 1 MG TABLET PO (09:01)
[2023-03-14] MEDS: Albuterol Sulfate 90 MCG 8 GM INHALER 2 PUFF INHALE (09:01)
--- NOTE | 2023-03-14 10:51 | PM.PSYDC ---
DS: Providers Provider Date of Service: 03/14/23 Date of admission: 03/08/23 17:53 Primary care physician: Unknown Physician DS: Diagnosis Discharge Diagnosis (1) Nicotine use disorder: Status: Acute (2) Alcohol use disorder: Status: Acute (3) Depressive disorder: Status: Acute DS: Medications Discharge Medications Home Medications: Home Medications Medication Instructions Recorded Confirmed hydroxyzine HCl 25 mg tablet 25 mg PO BEDTIME PRN anxiety 03/08/23 03/08/23 Previous Rx's Medication Instructions Recorded albuterol sulfate 90 mcg/actuation 2 puff inhalation RQ4H PRN 03/14/23 aerosol inhaler (Ventolin HFA) Shortness Of Breath 30 days #1 inhaler folic acid 1 mg tablet 1 mg PO DAILY 30 days #30 tabs 03/14/23 gabapentin 300 mg capsule 300 mg PO TID 30 days #90 caps 03/14/23 hydroxyzine HCl 25 mg tablet 25 mg PO BEDTIME PRN Anxiety 30 03/14/23 days #30 tabs ipratropium 20 mcg-albuterol 100 1 puff inhalation BID PRN Wheezing 03/14/23 mcg/actuation mist for inhalation 30 days #1 inhaler (Combivent Respimat) mirtazapine 30 mg tablet 30 mg PO BEDTIME 30 days #30 tabs 03/14/23 sertraline 50 mg tablet 50 mg PO DAILY 30 days #30 tabs 03/14/23 thiamine HCl (vitamin B1) 100 mg 100 mg PO DAILY 30 days #30 tabs 03/14/23 tablet tiotropium bromide 1.25 2 puff inhalation DAILY 30 days #1 03/14/23 mcg/actuation mist for inhalation inhaler (Spiriva Respimat) Mental Status Exam Mental Status Exam Narrative: cooperative. no PMA/PMR. disheveled. speech somewhat dysarthric, soft. nml amount and rate and prosody. thoughts digressive, can be linear in response to questions. logical. affect constricted, normo-intense, non-labile. mood not bad. no SI/HI/AVH. Data Data Completed and Pending Completed studies during hospitalization [Text1]: 03/07/23 03/07/23 03/07/23 16:24 16:24 16:24 WBC 13.6 H RBC 5.11 Hgb 17.3 Hct 46.7 MCV 91.4 MCH 33.9 H MCHC 37.0 H RDW 11.7 Plt Count 251 MPV 8.6 L Immature Gran % (Auto) 0.4 Neut % (Auto) 63.9 Lymph % (Auto) 27.7 [place] % (Auto) 7.5 Eos % (Auto) 0.1 Baso % (Auto) 0.4 Lymph # (Auto) 3.8 [place] # (Auto) 1.0 Eos # (Auto) 0.0 Baso # (Auto) 0.1 Abs Immat Gran (auto) 0.05 H Absolute Neuts (auto) 8.7 H Absolute Nucleated RBC 0.000 Nucleated RBC % (auto) 0.0 Sodium Potassium Chloride Carbon Dioxide Anion Gap BUN Creatinine Estim Creat Clear Calc Estimated GFR Random Glucose Estimat Average Glucose Hemoglobin A1c % Calcium Total Bilirubin AST ALT Alkaline Phosphatase Total Creatine Kinase Total Protein Albumin Triglycerides Cholesterol LDL Cholesterol, Calc HDL Cholesterol Urine Color Dark Yellow Urine Appearance Clear Urine pH 6.0 Ur Specific [place] 1.025 Urine Protein 300 (3+) H Urine Glucose (UA) Negative Urine Ketones Negative Urine Blood Negative Urine Nitrite Negative Ur Leukocyte Esterase Trace H Urine RBC 0-2 Urine WBC 0-5 Ur Squamous Epith Cells 0-2 Urine Bacteria None Seen Hyaline Casts 11-20 Salicylates < 5.0 L Urine Opiates Screen Urine Fentanyl Screen Acetaminophen < 17 Ur Barbiturates Screen Ur Phencyclidine Scrn Ur Amphetamines Screen U Benzodiazepines Scrn Urine Cocaine Screen U Marijuana (THC) Screen Ethyl Alcohol COVID-19 (URI) COVID-19 Clin Com 03/07/23 03/07/23 03/08/23 16:24 16:25 09:49 WBC RBC Hgb Hct MCV MCH MCHC RDW Plt Count MPV Immature Gran % (Auto) Neut % (Auto) Lymph % (Auto) [place] % (Auto) Eos % (Auto) Baso % (Auto) Lymph # (Auto) [place] # (Auto) Eos # (Auto) Baso # (Auto) Abs Immat Gran (auto) Absolute Neuts (auto) Absolute Nucleated RBC Nucleated RBC % (auto) Sodium 139 Potassium 2.9 L Chloride 93 L Carbon Dioxide 30 H Anion Gap 19 BUN 8 L Creatinine 0.81 Estim Creat Clear Calc 97.0 Estimated GFR > 60 Random Glucose 107 Estimat Average Glucose Hemoglobin A1c % Calcium 9.4 Total Bilirubin 0.5 AST 22 ALT 16 Alkaline Phosphatase 183 H Total Creatine Kinase 110 Total Protein 7.9 Albumin 4.2 Triglycerides Cholesterol LDL Cholesterol, Calc HDL Cholesterol Urine Color Urine Appearance Urine pH Ur Specific [place] Urine Protein Urine Glucose (UA) Urine Ketones Urine Blood Urine Nitrite Ur Leukocyte Esterase Urine RBC Urine WBC Ur Squamous Epith Cells Urine Bacteria Hyaline Casts Salicylates Urine Opiates Screen Not Detected Urine Fentanyl Screen Not Detected Acetaminophen Ur Barbiturates Screen Not Detected Ur Phencyclidine Scrn Not Detected Ur Amphetamines Screen Not Detected U Benzodiazepines Scrn Not Detected Urine Cocaine Screen Not Detected U Marijuana (THC) Screen POSITIVE H Ethyl Alcohol 236 COVID-19 (URI) Negative COVID-19 Clin Com See Note 03/08/23 03/09/23 03/09/23 12:15 08:57 08:58 WBC RBC Hgb Hct MCV MCH MCHC RDW Plt Count MPV Immature Gran % (Auto) Neut % (Auto) Lymph % (Auto) [place] % (Auto) Eos % (Auto) Baso % (Auto) Lymph # (Auto) [place] # (Auto) Eos # (Auto) Baso # (Auto) Abs Immat Gran (auto) Absolute Neuts (auto) Absolute Nucleated RBC Nucleated RBC % (auto) Sodium 137 Potassium 3.3 Chloride 93 L Carbon Dioxide 35 H Anion Gap 12 BUN 9 Creatinine 0.79 Estim Creat Clear Calc 99.5 Estimated GFR > 60 Random Glucose 110 Estimat Average Glucose 105 Hemoglobin A1c % 5.3 Calcium 9.5 Total Bilirubin AST ALT Alkaline Phosphatase Total Creatine Kinase Total Protein Albumin Triglycerides 188 Cholesterol 201 LDL Cholesterol, Calc 114 HDL Cholesterol 50 Urine Color Urine Appearance Urine pH Ur Specific [place] Urine Protein Urine Glucose (UA) Urine Ketones Urine Blood Urine Nitrite Ur Leukocyte Esterase Urine RBC Urine WBC Ur Squamous Epith Cells Urine Bacteria Hyaline Casts Salicylates Urine Opiates Screen Urine Fentanyl Screen Acetaminophen Ur Barbiturates Screen Ur Phencyclidine Scrn Ur Amphetamines Screen U Benzodiazepines Scrn Urine Cocaine Screen U Marijuana (THC) Screen Ethyl Alcohol COVID-19 (URI) COVID-19 Clin Com DS: Summary Hospital Course Hospital Course: per 03/09 admission note: per CARE team evaluation, pt was BIBA with c/o depression with SI with plan to overdose and wheel his wheelchair into traffic. notably, at presentation to the ED, pt was intoxicated with breathalyzer at .236. he informed CARE team staff he had recently gotten out of [facility]hab after a 30 day stay and gone to stay with his and [id number] at his [id number]'s home, with the understanding he needed to remain sober in order to stay there. he failed to remain sober and was forced to leave. he then stayed at [facility] until his money ran out. then he became suicidal and sought admission. per collateral from kacie, pt has been expressing SI for the past 10 days. she added he was also suicidal last year and stopped eating but continuned drinking, resulting ultimately in a medical admission for failure to thrive and a referral to an alcohol rehab at discharge. pt reports he has been depressed for a couple of years. he states that he was OK until 2-3 years ago when he lost his house and became homeless. since that time he has been in and out of physical rehabilitation facilities and living in motels. he states he has had 4 and a half months of sobriety before, and feels confident he can quit drinking now, believing he is quite motivated. he reports consistently depressed mood and endorses sleep disturbance, ruminative guilt, anergia, low concentration, and recent SI. he is ambivlanet regarding motivation/enjoyment and PMA/PMR. he reports his appetite is good. today he feels he is in alcohol withdrawal and endorses sweats and diarrhea. he denies ALEXANDER, tremor, or nausea. he is interested in treatment for depression. R/B of SSRIs and wellbutrin are discussed, SSRI decided upon for safety. agrees to start zoloft 50 mg daily. pt also agrees to restart remeron, which he was prescribed recently at [facility]. Past Psychiatric History: hosps: none prior SA: denies SIB: denies outpt Tx Hx: denies Medical Evaluation Reviewed: Yes PMFSH Narrative: anemia COPD h/o EtOH w/drawal Sz severe protein-calorie malnutrition gait apraxia avascular necrosis B/L femoral heads functional urinary incontinence functional fecal incontinence GERD stage II pressure ulcer left hip Family History: mother - alcohol Social History: had been living in a rented house with his and 2 others. they left and he and his could no longer afford the rent. [facility] and she went to live with her father. [facility]900/[facility]. has a history of working numerous jobs, such as factory work and electrical. guesses the last time he ws working was about 10 years ago. he states that for the past 3-4 years he has been disabled and in a wheelchair. Substance History: tobacco: 1 ppd cannabis: seldom: utox POS alcohol: daily denies use of other drugs or substances of abuse. denies any h/o detox or rehab. has some Hx in an AA-like group. Trauma History: denies Precis: 03/09:? ativan per [facility] protocol for alcohol withdrawal.? lacie lozenge for nicotine dependence.? remeron for sleep.? zoloft for depression. referral to rehab. 03/10: Continue current regimen. 03/11: USHAWA DCed as pt was not scoring.? otherwise continue current regimen. 03/12:? appears more lively.? states both jolly and depressed.? considering rest home.? PT eval for gait/need for STR.? dietary consult for malnutrition.? increase remeron to 30 for insomnia.? 03/13:? appreciate PT and nutrition recs.? ensure has been added.? slept well.? exploring dispo options.? no change in mgmt today otherwise. 03/14: continues to sleep well, stable psychiatrically. rest homes not ADA-compliant, cannot go there with wheelchair. unclear if STR will take him. discharging tomorrow, likely to snf. 03/15: stable. discharged as per plan, to snf. Time Spent with Patient Time attestation: Total time managing care of this patient today ____ minutes. Time spent: Greater than 30 minutes Discharge Plan Discharge Anticipated Discharge Date/Time: 03/15/23 14:00 Patient Disposition: Usp Discharge Diagnosis: Depressive Disorder Alcohol Use Disorder Referrals: [facility] [Provider Group] - 03/26/23 3:00 pm Discharge Medications: New gabapentin 300 mg Capsule 300 mg PO TID 30 Days Qty: 90 0RF hydroxyzine HCl 25 mg Tablet 25 mg PO BEDTIME PRN (Reason: Anxiety) 30 Days Qty: 30 0RF albuterol sulfate [Ventolin HFA] 90 mcg/actuation Hfa Aerosol Inhaler 2 puff inhalation RQ4H PRN (Reason: Shortness Of Breath) 30 Days Qty: 1 0RF mirtazapine 30 mg Tablet 30 mg PO BEDTIME 30 Days Qty: 30 0RF sertraline 50 mg Tablet 50 mg PO DAILY 30 Days Qty: 30 0RF Continued thiamine HCl (vitamin B1) 100 mg tablet 100 mg PO DAILY 30 Days Qty: 30 0RF folic acid 1 mg tablet 1 mg PO DAILY 30 Days Qty: 30 0RF Combivent Respimat 20-100 mcg/actuation mist 1 puff inhalation BID PRN (Reason: Wheezing) 30 Days Qty: 1 0RF Spiriva Respimat 1.25 mcg/actuation mist 2 puff INHALATION DAILY 30 Days Qty: 1 0RF Discontinued hydroxyzine HCl 25 mg tablet 25 mg PO BEDTIME PRN (Reason: anxiety) Discharge Orders: Discharge Order (Routine); Ordered 03/15/23 Ordered By: Samuel Maldonado Diet: Advance to usual diet Activity on Discharge: As tolerated Stand Alone Forms: Patient Portal Discharge page, Community Support Care Plan Goals: remain safe and sober in the outpatient treatment setting Health Concerns: COPD impaired ambulation low back pain Plan of Treatment: take medications as prescribed, attend appointments as scheduled Assessment: not at imminent risk of harm to self or others
[2023-03-14 20:35] VITALS: BP 120/73; PULSE 87; RESP 18; TEMP 36.4; O2SAT 96
[2023-03-14] MEDS: hydrOXYzine HCL 25 MG TABLET PO (22:14)
[2023-03-14] MEDS: Mirtazapine 30 MG TABLET PO (22:14)
[2023-03-15 06:00] VITALS: BP 126/75; PULSE 80; RESP 18; TEMP 36.9; O2SAT 96
[2023-03-15] MEDS: Gabapentin 300 MG CAPSULE PO ×2 (08:25→14:00)
[2023-03-15] MEDS: Acetaminophen 325 MG TABLET 650 MG PO ×2 (08:25→14:00)
[2023-03-15] MEDS: Thiamine HCL 100 MG TABLET PO (08:25)
[2023-03-15] MEDS: Folic Acid 1 MG TABLET PO (08:25)
[2023-03-15] MEDS: Sertraline HCL 50 MG TABLET PO (08:25)
--- NOTE | 2023-03-15 09:52 | PC.NURSE ---
Nilo is alert, fully oriented, pleasant and cooperative with discharge process. He denies ideation, plan or intent to harm self or others. He verbalizes understanding of discharge plan including appointments and meds. He denies physical complaint
[2023-03-15] MEDS: Magnesium Hydrox/Alum Hydrox 30 ML ORAL.SUSP PO (10:28)
== END 2023-03-15 14:25 | disposition home or self-care (01) | DRG 754 ==
LOC: HO.ED 20:21 → HO.PADLT16 03-08 18:06
PROVIDERS: Physician Assistant; Admitting Provider Psychiatry & Neurology Psychiatry; Emergency Provider Student in an Organized Health Care Education/Training Program; Visit Provider Psychiatry & Neurology Psychiatry
DX: F32.A Depression, unspecified (principal); R45.851 Suicidal ideations; F17.210 Nicotine dependence, cigarettes, uncomplicated; F10.129 Alcohol abuse with intoxication, unspecified; Z20.822 Contact with and (suspected) exposure to COVID-19; Y90.7 Blood alcohol level of 200-239 mg/100 ml; Z71.6 Tobacco abuse counseling; Z99.3 Dependence on wheelchair; Z59.02 Unsheltered homelessness; Z79.899 Other long term (current) drug therapy
CPT/HCPCS: 36415; 80048; 80053; 80061; 80143; 80179; 80307; 81001; 82550; 83036; 85025; 87635; 93005; 94640; 97161; 99285; S9485